=== PATIENT | male | born 1995 | race Caucasian/White ===

== ENCOUNTER 2021-07-30 15:40 | Emergency (ER) | payer SELFPAY ==
[~2021-07-30] VITALS: Ht 172.7 cm; Wt 73.9 kg
[2021-07-30 16:00] VITALS: BP 121/80
--- NOTE | 2021-07-30 16:00 | NUR ---
25 y/o M BIB self from home c/o abscess to left temporal region x 1 month. States 4/10, tender/intermittent. Denies medications prior to arrival. Denies drainage, bleeding, swelling, redness, blurry vision, headache. Bed locked in lowest position, side rails x 1. PMH/Sx/Meds: Denies NKDA
--- NOTE | 2021-07-30 16:11 | NUR ---
LUIS M MARTIN AT BEDSIDE EVALUATING PT
--- NOTE | 2021-07-30 16:19 | NUR ---
Patient ambulated to chair B.
--- NOTE | 2021-07-30 16:30 | NUR ---
Patient discharged with v/s stable. Written and verbal after care instructions given and explained. Patient verbalized understanding. Ambulatory with steady gait. All questions addressed prior to discharge. Advised to follow up with PMD.
== END 2021-07-30 16:30 | disposition home or self-care (01) ==
LOC: MED 15:40
DX: R22.0 Localized swelling, mass and lump, head (principal)
CPT/HCPCS: 99281

== ENCOUNTER 2022-08-15 18:31 | Emergency (ER) | payer OTHER ==
[~2022-08-15] VITALS: Ht 170.2 cm; Wt 74.4 kg
[2022-08-15 18:45] VITALS: BP 129/79
[2022-08-15] MEDS ORDERED: DICYCLOMINE HCL LIQUID 20 MG, ALUMINUM HYD/MAG/SIMETHICONE 30 ML, LIDOCAINE VISCOUS 2% ... PO ONE ×3 (20:35)
[2022-08-15] MEDS ORDERED: ONDANSETRON 4 MG ODT PO ONE (20:35)
[2022-08-15] MEDS ORDERED: DICYCLOMINE HCL LIQUID 10 MG/5 ML UDC ONE (20:38)
[2022-08-15] MEDS ORDERED: ALUMINUM HYD/MAG/SIMETHICONE 30 ML UDC ONE (20:38)
--- NOTE | 2022-08-15 20:45 | NUR ---
Blood for labwork drawn by creative services specialist. Patient tolerated well.
--- NOTE | 2022-08-15 20:54 | NUR ---
Patiradha takent to X-ray via WC.
--- NOTE | 2022-08-15 21:02 | NUR ---
Patient taken to bed 9.
[2022-08-15 21:10] LABS: BASOPHILS % (AUTO) 0.1 % (0.0-2.0); EOSINOPHILS % (AUTO) 0.1 % (0.0-4.0); HEMOGLOBIN 15.4 g/dL (12.0-18.0); LYMPHOCYTES # (AUTO) 0.4 K/uL (2.0-11.5); LYMPHOCYTES % (AUTO) 3.8 % (20.5-51.1); MEAN CORPUSCULAR HEMOGLOBIN 31 pg (27-31); MEAN CORPUSCULAR HGB CONC 34 g/dL (33-37); MEAN CORPUSCULAR VOLUME 89.6 fL (80-94); MONOCYTES # (AUTO) 0.3 K/uL (0.8-1.0); MONOCYTES % (AUTO) 2.8 % (1.7-9.3); NEUTROPHILS # (AUTO) 9.2 K/uL (1.8-7.7); NEUTROPHILS % (AUTO) 93.2 % (42.2-75.2); PLATELET COUNT (AUTO) 214 K/uL (140-450); RED BLOOD CELL COUNT(AUTO) 5.02 MIL/uL (4.20-6.10); RED CELL DISTRIBUTION WIDTH 13.4 % (11.6-13.7); WHITE BLOOD COUNT (AUTO) 9.8 K/uL (4.8-10.8)
--- NOTE | 2022-08-15 21:15 | NUR ---
urine sample collected and sent to lab.
[2022-08-15 21:34] LABS: ALBUMIN 4.7 g/dL (3.4-5.0); ANION GAP 14.2 (8-16); CARBON DIOXIDE 26.2 mmol/L (21-32); POTASSIUM 3.4 mmol/L (3.5-5.1)
[2022-08-15 21:39] LABS: BARBITURATE, URINE NEGATIVE ng/ml (NEG <=200); BENZODIAZEPINE, URINE NEGATIVE ng/mL (NEG <=200); CANNABINOID, URINE POSITIVE ng/mL (NEG <=50); COCAINE, URINE NEGATIVE ng/mL (NEG <=300); OPIATE, URINE NEGATIVE ng/mL (NEG <=2000); PHENCYCLIDINE SCREEN,URINE NEGATIVE ng/mL (NEG <=25)
--- NOTE | 2022-08-15 21:46 | NUR ---
Dr. Capps explained results and treatment plans.
[2022-08-15] MEDS ORDERED: BISM262C53 PO (21:47)
[2022-08-15] MEDS ORDERED: ONDA-188 SL (21:47)
[2022-08-15] MEDS ORDERED: SUCR1TAB35 PO (21:47)
[2022-08-15] MEDS ORDERED: FAMO-90 PO (21:47)
[2022-08-15 22:01] VITALS: BP 124/79
--- NOTE | 2022-08-15 22:01 | NUR ---
Patient discharged with v/s stable. Written and verbal after care instructions given and explained. Patient alert, oriented and verbalized understanding of instructions. Ambulatory with steady gait. All questions addressed prior to discharge. ID band removed. Patient advised to follow up with PMD. Rx of Pepto-Bismol, Pepcid, Zofran and Carafate given. Patient educated on indication of medication including possible reaction and side effects. Opportunity to ask questions provided and answered.
== END 2022-08-15 22:01 | disposition home or self-care (01) ==
LOC: MED 18:31
DX: K29.00 Acute gastritis without bleeding (principal); F12.90 Cannabis use, unspecified, uncomplicated; Z79.899 Other long term (current) drug therapy
CPT/HCPCS: 36415; 71045; 80053; 80305; 83690; 85025; 99284; Q0162